=== PATIENT | female | born 1970 | race Caucasian/White ===

== ENCOUNTER 2018-09-05 21:13 | Emergency (ER) | payer BC ==
[2018-09-05] MEDS ORDERED: Take Home: traMADol 50 MG, 4 Tab Pack PO ONE (21:33)
[2018-09-05] MEDS ORDERED: Ketorolac 30 MG/ML SDV IM ONE (21:33)
[2018-09-05] MEDS ORDERED: Take Home: Cyclobenzaprine 10 MG Tab, 4 Tab Pack PO ONE (21:33)
--- NOTE | 2018-09-05 23:14 | EDM.PDOC ---
ED HPI GENERAL MEDICAL PROBLEM - General Chief Complaint: Back Pain or Injury Stated Complaint: BACK HURTING Time Seen by Provider: 09/05/18 21:25 Source of Information: Reports: Patient History Limitations: Reports: No Limitations - History of Present Illness INITIAL COMMENTS - FREE TEXT/NARRATIVE: Pt. presents to ER with complains of neck pain with radiation into L shoulder and arm. Pt. states that she has been experiencing this for the past week. She has seen chiropractic for the problem and feels that the adjustment potentiated the problem. She denies any trauma to her neck. She states that she has been working a lot lately and feels that she has exacerbated the pain. No recent falls or accidents. No fever or chills. No chest pain or shortness of breath. She states that the numbness is intermittent and involves her entire L upper extremity. Denies any paresthesia elsewhere other than the L upper extremity. Onset: Today Onset Date: 08/29/18 Location: Reports: Neck, Upper Extremity, Left Quality: Reports: Sharp, Throbbing Left Neck Pain Score (Numeric/FACES): 10 - Related Data Allergies Allergy/AdvReac Type Severity Reaction Status Date / Time acetaminophen [From Tylenol] Allergy Hyperactivi Verified 09/05/18 21:26 ty Penicillins Allergy Swelling Verified 09/05/18 21:26 Home Meds: Home Meds . [No Known Home Meds] 09/05/18 [History] Past Medical History - Past Surgical History HEENT Surgical History: Reports: Other (See Below) Other HEENT Surgeries/Procedures: cyst removed behind ear. teeth removed Female Surgical History: Reports: D&C Social & Family History - Tobacco Use Smoking Status *Q: Current Every Day Smoker Years of Tobacco use: 20 Packs/Tins Daily: 0.5 - Recreational Drug Use Recreational Drug Use: Yes Drug Use in Last 12 Months: No Recreational Drug Type: Reports: Marijuana/Hashish Recreational Drug Use Frequency: Not Used In Over 6 Months ED ROS GENERAL - Review of Systems Review Of Systems: ROS reveals no pertinent complaints other than HPI. ED EXAM, GENERAL - Physical Exam Exam: See Below Exam Limited By: No Limitations General Appearance: Alert, WD/WN, No Apparent Distress Neck: Normal Inspection, Limited Range of Motion, Tender Lateral, Tender Midline , Other (severe pain to c-spine and L upper shoulder. Significant spasm noted. Reflexes are normal. CMS intact. No crepitus or deformity noted.) Back Exam: Decreased Range of Motion, Muscle Spasm, Paraspinal Tenderness Extremities: Normal Inspection, Normal Range of Motion, Normal Capillary Refill Course - Vital Signs Last Recorded V/S: Last Vital Signs Temp 36.6 C 09/05/18 21:13 Pulse 88 09/05/18 21:13 Resp 16 09/05/18 21:13 BP 153/81 H 09/05/18 21:13 Pulse Ox 99 09/05/18 21:13 - Orders/Labs/Meds Meds: Medications Discontinued Medications Generic Name Dose Route Start Last Admin Trade Name Freq PRN Reason Stop Dose Admin Cyclobenzaprine HCl 1 packet 09/05/18 21:33 09/05/18 21:45 Take Home: Cyclobenzaprine 10 Mg, 4 Tab Pack PO 09/05/18 21:34 1 packet ONETIME ONE Administration Ketorolac Tromethamine 30 mg 09/05/18 21:33 09/05/18 21:46 Toradol IM 09/05/18 21:34 30 mg ONETIME ONE Administration Orphenadrine Citrate 60 mg 09/05/18 21:33 09/05/18 21:45 Norflex IM 09/05/18 21:34 60 mg ONETIME ONE Administration Tramadol HCl 1 packet 09/05/18 21:33 09/05/18 21:45 Take Home: Tramadol 50 Mg, 4 Tab Pack PO 09/05/18 21:34 1 packet ONETIME ONE Administration Departure - Departure Time of Disposition: 22:30 Disposition: Home, Self-Care 01 Clinical Impression: Radiculitis of left cervical region - Discharge Information Instructions: Acute Torticollis, Adult Forms: ED Department Discharge Additional Instructions: Flexeril 10 mg 1 tab 3 times a day for muscle spasm Tramadol 50mg 1 every 4-6 hours as needed for pain Ibuprofen 200mg 3 tabs every 6 hours as needed for pain Do the exercises I showed you Physical therapy will contact you regarding an appointment for this Follow-up in clinic in 10-14 days for recheck - Assessment/Plan Plan: Flexeril 10 mg 1 tab 3 times a day for muscle spasm Tramadol 50mg 1 every 4-6 hours as needed for pain Ibuprofen 200mg 3 tabs every 6 hours as needed for pain Do the exercises I showed you Physical therapy will contact you regarding an appointment for this Follow-up in clinic in 10-14 days for recheck
== END 2018-09-05 21:50 | disposition home or self-care (01) ==
LOC: VM.ED 21:13
DX: M54.12 Radiculopathy, cervical region (principal); F17.210 Nicotine dependence, cigarettes, uncomplicated; Z88.0 Allergy status to penicillin
CPT/HCPCS: 96372; 99283; A9270; J1885; J2360

== ENCOUNTER 2019-12-21 17:52 | Emergency (ER) | payer BC, OTHER ==
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
== END 2019-12-21 18:29 | disposition home or self-care (01) ==
LOC: VM.ED 17:52 → SUPCPDRO 17:52 → VM.ED 18:29
DX: Z04.3 Encounter for examination and observation following other accident (principal); F17.210 Nicotine dependence, cigarettes, uncomplicated; Z88.6 Allergy status to analgesic agent; Z88.0 Allergy status to penicillin
CPT/HCPCS: 99283